=== PATIENT | female | born 1970 | race Caucasian/White ===

== ENCOUNTER 2021-02-19 08:16 | Outpatient (CLI) | payer OTHER, SELFPAY | END 2021-02-19 08:17 | LOC: ANHCOVIDVC 08:16 | PROVIDERS: PCP Physician Assistant | DX: Z23 Encounter for immunization (principal) | CPT/HCPCS: 0001A; 91300 ==

== ENCOUNTER 2021-03-12 08:13 | Outpatient (CLI) | payer OTHER, SELFPAY | END 2021-03-12 08:14 | disposition home or self-care (01) | LOC: ANHCOVIDVC 08:14 | PROVIDERS: PCP Physician Assistant | DX: Z23 Encounter for immunization (principal) | CPT/HCPCS: 0002A; 91300 ==

== ENCOUNTER 2025-03-14 13:33 | Outpatient (CLI) | payer OTHER, SELFPAY ==
--- NOTE | ~2025-03-14 | MM_ITS ---
EXAMINATION: MM screening [facility] w kaycee HISTORY: Screening TECHNIQUE: Craniocaudal and mediolateral oblique 3-D tomosynthesis images were obtained and synthetic 2-D images were generated. CAD analysis was submitted and interpreted. COMPARISON: No prior mammogram is available for comparison at this institution. BREAST PARENCHYMAL COMPOSITION: Not dense: There are scattered areas of fibroglandular density. FINDINGS: There is no evidence of suspicious mass, calcification, or architectural distortion to sugg est malignancy in either breast. There has been no suspicious interval change. IMPRESSION: 1. No mammographic evidence of malignancy. 2. Recommend routine screening mammography in one year. BI-RADS Category 1: Negative Reviewed, dictated and finalized at location A.
== END 2025-03-14 13:34 | disposition home or self-care (01) ==
PROVIDERS: PCP Student in an Organized Health Care Education/Training Program; Visit Provider Student in an Organized Health Care Education/Training Program
DX: Z12.31 Encounter for screening mammogram for malignant neoplasm of breast (principal)
CPT/HCPCS: 77063; 77067